=== PATIENT | male | born 1965 | race Caucasian/White ===

== ENCOUNTER 2017-02-19 14:16 | Emergency (ER) | payer OTHER ==
[~2017-02-19] VITALS: Ht 180.3 cm; Wt 115.7 kg
--- NOTE | ~2017-02-19 | CT4 ---
[facility] A Service of [facility] RADIOLOGY TEXT RESULTS PATIENT: TIM TERRELL LOCATION: [facility] : 67 UNIT #: [id number] AGE: [address]: Randy Leung MD SEX: M ORDER DR: [id number] [facility]. [place], [place] [address] [id number] MR#: [id number] Acc #: [id number] NAME: TIM TERRELL. : 1965 SEX: M STUDY DATE/TIME: 02/19/2017 16:11 UNIT: [facility] ROOM: STUDY DESCRIPTION: CT Abd and Pelv Wo Cont Attending Physician: Randy Leung M.D. Ordering Physician: Randy Leung M.D. Primary Care Physician: Talha Forbes M.D. MEDICAL IMAGING REPORT This report is preliminary unless electronic signature is present EXAM Abdomen and pelvis CT without contrast HISTORY Nausea, vomiting and diarrhea beginning this morning, with pain in the right lower quadrant. TECHNIQUE Axial images were obtained without contrast. This CT exam was performed with one or more of the following radiation dose reduction techniques: Automatic exposure control, adjustment of mA and/or kV according to patient size, and iterative reconstruction. FINDINGS There is mild atelectasis and volume loss at both lung bases, right worse than left. In the abdomen, the liver, spleen and pancreas are normal in size. The left kidney is unremarkable. The right kidney demonstrates hydronephrosis and periureteral edema, with an obstructing stone seen in the mid pelvis several centimeters above the UVJ, measuring 3 x 5 mm. No bladder stones are seen. The appendix is normal. No acute or inflammatory changes are seen in the abdomen or pelvis. IMPRESSION 3 x 5 mm obstructing stone distal right ureter at the level of the mid pelvis, with moderate hydronephrosis and moderate periureteral edema. No additional acute or inflammatory changes noted. Dictated by... Randy Mcfadden M.D. [facility] A Service of [facility] RADIOLOGY TEXT RESULTS PATIENT: TIM TERRELL LOCATION: [facility] : 67 UNIT #: [id number] AGE: [address]: Randy Leung MD SEX: M ORDER DR: THIS IS AN ELECTRONICALLY VERIFIED REPORT Randy Mcfadden M.D. at 02/20/2017 7:08 AM MAHAD/fide TD: 02/20/2017 00:15 JOB #: [id number] MEDICAL IMAGING REPORT Page 1 of 1 COPY
[2017-02-19 15:30] LABS: URINE SOURCE CLEAN CATCH
[2017-02-19 15:37] LABS: URINE APPEARANCE CLOUDY; URINE BILIRUBIN NEG (NEG); URINE BLOOD 3+ (NEG); URINE COLOR DK YELLOW; URINE GLUCOSE NEG (NEG); URINE KETONE TRACE (NEG); URINE LEUKOCYTE ESTERASE NEG (NEG); URINE NITRATE NEG (NEG); URINE PROTEIN 1+ (NEG); URINE SPECIFIC GRAVITY 1.025 (1.003-1.035); URINE UROBILINOGEN 0.2 MG/DL (NEG)
[2017-02-19 15:40] LABS: U HYALINE CASTS AUWI 0-2 /[LPF]; URBCS1 AUWI 100-200 /[HPF] (0-2); URINE BACTERIA AUWI NEG (NEGATIVE); URINE SQUAMOUS EPITHELIAL CELL NONE SEEN /[HPF]; UWBCS1 AUWI 0-2 (0-5)
[2017-02-19 15:49] LABS: CULTURE INDICATED? NO
[2017-02-19 16:05] LABS: BASOPHIL# 0.1 X10e3 (0-0.3); BASOPHIL% 0.6 % (0-2.5); EOSINOPHIL% 0.3 % (0.0-7.0); HEMATOCRIT 49.1 % (38.0-50.0); HEMOGLOBIN 16.8 gm/dL (13.0-16.0); LYMPHOCYTE# 1.2 X10e3 (1.0-3.5); LYMPHOCYTE% 10.6 % (17.0-45.0); MEAN CELL VOLUME 88.9 FL (83-96); MEAN CORPUSCULAR HEMOGLOBIN 30.5 PG (28-34); MEAN CORPUSCULAR HGB CONC 34.3 g/dL (30-36); MEAN PLATELET VOLUME 8.9 FL (6.5-11.5); MONOCYTE# 0.9 X10e3 (0-1.0); NEUTROPHIL# 8.9 X10e3 (1.5-7.1); NEUTROPHIL% 80.5 % (40-75); PLATELET COUNT 187 X10e3 (140-420); RED BLOOD COUNT 5.52 X10e (3.90-5.60); RED CELL DISTRIBUTION WIDTH 13.9 % (11.0-15.5)
[2017-02-19 16:21] LABS: DIFF IND NO
[2017-02-19 16:45] LABS: ALBUMIN SERUM 4.4 g/dL (3.5-5.0); BILIRUBIN, DIRECT 0.1 mg/dL (0.0-0.2); BILIRUBIN,INDIRECT 0.7 mg/dL (0.0-0.9); BILIRUBIN,TOTAL 0.8 mg/dL (0.2-2.0); BUN/CREATININE RATIO 18.75; CALCIUM SERUM 9.2 mg/dL (8.4-10.2); CREATININE SERUM 0.8 mg/dL (0.6-1.4); GLOM FILT RATE Estimated 103.5 mL/min (>60); POTASSIUM 4.4 mmol/L (3.5-5.1); PROTEIN TOTAL SERUM 7.4 g/dL (6.0-8.3)
== END 2017-02-19 18:31 | disposition home or self-care (01) ==
LOC: CED 14:16
PROVIDERS: Emergency Medicine
DX: N13.2 Hydronephrosis with renal and ureteral calculous obstruction (principal)
CPT/HCPCS: 36415; 74176; 80048; 80076; 81003; 82150; 83690; 85025; 96361; 96374; 99284; J1885